=== PATIENT | female | born 1955 | race Caucasian/White ===

== ENCOUNTER → 2019-02-25 | Outpatient (CLI) | payer OTHER ==
--- NOTE | 2019-02-28 12:15 | REPMRS ---
Patient History The patient states she has not had a clinical breast exam in over a year. Patient is postmenopausal. No known family history of cancer. Reductions of both breasts, 1999. No Hormone Replacement Therapy Digital Woman Screen Mammo: February 25, 2019 - Exam #: [id number] Bilateral CC and MLO view(s) were taken. Technologist: Emi Stockton, Technologist Prior study comparison: July 17, 2016, bilateral digital woman screen mammo, performed at [facility]. March 06, 2010, bilateral digital woman screen mammo, performed at [facility]. FINDINGS: There are scattered fibroglandular densities. There has been no change in the appearance of the mammogram from the prior studies. There is a mild amount of scattered fibroglandular density which is fairly symmetric. There is no interval development of dominant mass, architectural distortion, or clustered microcalcification suggestive of malignancy. 3-D tomosynthesis shows no additional findings. Assessment: BI-RADS/ACR category 1 mammogram. Negative Mammogram. Recommendation Routine screening mammogram of both breasts in 1 year (for women over age 40). This patient's Lifetime Breast Cancer RIsk is estimated at 6.4 %. This mammogram was interpreted with the aid of an FDA-approved computer-aided dectection system. Electronically Signed By: Frandy Jo MD 02/28/19 [id number]
== END ==
LOC: M WHC 12:48
PROVIDERS: ATTEND Internal Medicine
DX: Z12.31 Encounter for screening mammogram for malignant neoplasm of breast (principal); Z78.0 Asymptomatic menopausal state

== ENCOUNTER 2019-11-08 08:44 | Day surgery (SDC) | payer OTHER ==
[~2019-11-08] VITALS: Ht 152.4 cm; Wt 78.9 kg
[~2019-11-08 08:44] MED LIST: JANU100T PO; LIDOCAINE 2% INJ 100 MG/5 ML SDV (FOR ANES.) As Ordered ONE; LISI10TA15 PO; METF-723 PO; NS 1,000 ML IV SCH; SIMV20TA22 PO; propofoL 200 MG/20 ML VIAL As Ordered ONE
--- NOTE | 2019-11-08 09:58 | ROOR ---
Patient Name: Sarahi Noland Procedure Date: 11/08/2019 9:46 AM Date of : 1955 Age: 64 Room: [facility] Gender: Female Note Status: Finalized Procedure: Upper GI endoscopy Indications: Surveillance for malignancy due to personal history of Hui's esophagus Providers: Brad FERNANDEZ MD Referring MD: TERESSA PETERS MD Requesting Provider: Medicines: Monitored Anesthesia Care Complications: No immediate complications. Procedure: Pre-Anesthesia Assessment: - The heart rate, respiratory rate, oxygen saturations, blood pressure, adequacy of pulmonary ventilation, and response to care were monitored throughout the procedure. The Endoscope was introduced through the mouth, and advanced to the second part of duodenum. The upper GI endoscopy was accomplished without difficulty. The patient tolerated the procedure well. Findings: The Z-line was irregular and was found 38 cm from the incisors. This was biopsied with a cold forceps for histology. The esophagus was normal. The stomach was normal. The examined duodenum was normal. Impression: - Z-line irregular, 38 cm from the incisors. Biopsied. - Normal esophagus. - Normal stomach. - Normal examined duodenum. Recommendation: - Continue present medications. - Repeat upper endoscopy in 3 - 5 years for surveillance based on pathology results. - Telephone endoscopist for pathology results in 2 weeks. Brad Fernandez MD Brad FERNANDEZ MD 11/08/2019 9:58:26 AM Electronically signed by Brad FERNANDEZ MD Number of Addenda: 0 Note Initiated On: 11/08/2019 9:46 AM Estimated Blood Loss: Estimated blood loss: none.
--- NOTE | 2019-11-08 10:20 | ROOR ---
Patient Name: Sarahi Noland Procedure Date: 11/08/2019 9:46 AM Date of : 1955 Age: 64 Room: [facility] Gender: Female Note Status: Finalized Procedure: Colonoscopy Indications: High risk colon cancer surveillance: Personal history of colonic polyps Providers: Brad ENG MD Referring MD: TERESSA PETERS MD Requesting Provider: Medicines: Monitored Anesthesia Care Complications: No immediate complications. Procedure: Pre-Anesthesia Assessment: - The heart rate, respiratory rate, oxygen saturations, blood pressure, adequacy of pulmonary ventilation, and response to care were monitored throughout the procedure. The Colonoscope was introduced through the anus and advanced to the cecum, identified by appendiceal orifice and ileocecal valve. The colonoscopy was performed without difficulty. The patient tolerated the procedure well. The quality of the bowel preparation was fair. Findings: The perianal and digital rectal examinations were normal. A diffuse area of mildly erythematous mucosa was found in the entire colon. This was biopsied with a cold forceps for histology. The exam was otherwise without abnormality on direct and retroflexion views. Impression: - Preparation of the colon was fair. - Mildly erythematous mucosa in the entire examined colon. Biopsied. - The examination was otherwise normal on direct and retroflexion views. Recommendation: - Repeat colonoscopy in 3 years because the bowel preparation was suboptimal. - (Rec alternate colon preparation for next colonoscopy) Brad Eng MD Brad ENG MD 11/08/2019 10:19:42 AM Electronically signed by Brad ENG MD Number of Addenda: 0 Note Initiated On: 11/08/2019 9:46 AM Estimated Blood Loss: Estimated blood loss: none.
[2019-11-08 10:45] VITALS: BP 119/63
== END 2019-11-08 10:52 | disposition home or self-care (01) ==
LOC: M OPP 08:44
PROVIDERS: ATTEND Internal Medicine Gastroenterology
DX: K64.8 Other hemorrhoids (principal); R63.4 Abnormal weight loss; Z80.0 Family history of malignant neoplasm of digestive organs; K22.8 Other specified diseases of esophagus; K20.0 Eosinophilic esophagitis; E11.9 Type 2 diabetes mellitus without complications; K21.9 Gastro-esophageal reflux disease without esophagitis; Z79.84 Long term (current) use of oral hypoglycemic drugs; Z79.899 Other long term (current) drug therapy; Z87.891 Personal history of nicotine dependence

== ENCOUNTER → 2020-03-07 | Outpatient (CLI) | payer OTHER ==
[~2020-03-07] MED LIST changes: -LIDOCAINE 2% INJ 100 MG/5 ML SDV (FOR ANES.) As Ordered ONE; -NS 1,000 ML IV SCH; -propofoL 200 MG/20 ML VIAL As Ordered ONE
--- NOTE | 2020-03-07 15:09 | REPMRS ---
Patient History The patient states she has not had a clinical breast exam in over a year. No known family history of cancer. Reductions of both breasts, 1999. No Hormone Replacement Therapy Digital Woman Screen Mammo: March 07, 2020 - Exam #: [id number] Bilateral CC and MLO view(s) were taken. Technologist: Anny Stewart Technologist Prior study comparison: February 25, 2019, bilateral digital woman screen mammo performed at [facility]. July 17, 2016, bilateral digital woman screen mammo, performed at [facility]. FINDINGS: There are scattered fibroglandular densities. The Volpara volumetric breast density category is:B. There has been no change in the appearance of the mammogram from the prior studies. There is a mild amount of scattered fibroglandular density which is fairly symmetric. There is no interval development of dominant mass, architectural distortion, or grouped microcalcification suggestive of malignancy. 3-D tomosynthesis shows no additional findings. Assessment: BI-RADS/ACR category 1 mammogram. Negative Mammogram. Recommendation Routine screening mammogram of both breasts in 1 year (for women over age 40). This patient's Lifetime Breast Cancer Risk is estimated at 6.1 %. This mammogram was interpreted with the aid of an FDA-approved computer-aided dectection system. Electronically Signed By: Frandy Jo MD 03/07/20 [id number]
== END ==
LOC: M WHC 14:01
PROVIDERS: ATTEND Internal Medicine
DX: Z12.31 Encounter for screening mammogram for malignant neoplasm of breast (principal)

== ENCOUNTER 2021-01-22 12:21 | Emergency (ER) | payer OTHER ==
[~2021-01-22] VITALS: Ht 154.9 cm; Wt 81.4 kg
[2021-01-22] MEDS ORDERED: CYCL-707 (12:31)
[2021-01-22] MEDS ORDERED: OMEP1CAP73 (12:31)
[2021-01-22 13:16] LABS: BASO # 0.1 10^3/uL (0.0-0.2); BASO % 1.1 % (0.0-1.0); EOS % 0.4 % (0.0-3.0); HEMATOCRIT 42.3 % (36.0-47.0); HEMOGLOBIN 13.9 g/dl (12.0-15.5); LYMPH # 1.5 10^3/uL (1.5-5.0); LYMPH % 18.6 % (24.0-44.0); MEAN CORPUSCULAR HEMOGLOBIN 26.2 pg (27.0-33.0); MEAN CORPUSCULAR HGB CONC 32.9 g/dl (32.0-36.5); MEAN CORPUSCULAR VOLUME 79.8 fl (80.0-96.0); MONO # 0.7 10^3/uL (0.0-0.8); MONO % 8.2 % (2.0-8.0); NEUTROPHILS # 5.8 10^3/uL (1.5-8.5); NEUTROPHILS % 71.3 % (36.0-66.0); PLATELET COUNT, AUTOMATED 348 10^3/uL (150-450); WHITE BLOOD COUNT 8.1 10^3/uL (4.0-10.0)
[2021-01-22] MEDS ORDERED: ONDANSETRON 4MG/2ML VIAL As Ordered ONE (13:19)
--- NOTE | 2021-01-22 13:19 | REP ---
INDICATION: dizziness. COMPARISON: None. TECHNIQUE: Helical scanning is acquired. 5 mm axial images were reformatted. Coronal MPR images were generated. FINDINGS: Bone window settings demonstrate an intact bony calvarium. There is no evidence of skull fracture or incidental bony calvarial lesion. The visualized paranasal sinuses appear clear. No intraorbital abnormality is seen. On soft tissue window setting images; the lateral, third, and fourth ventricles are normal in size and position. Baird-white differentiation pattern is normal above and below the tentorium. There are is no evidence of intracranial hemorrhage. No mass, edema, infarction, or midline shift is seen. No extra-axial fluid collection is appreciated. There is mild vascular calcification in the carotid siphons bilaterally. Some physiologic calcification is noted in the basal ganglia. IMPRESSION: Minimal vascular calcification. No acute intracranial abnormality.. <Electronically signed by Frandy Jo > 01/22/21 [id number]
[2021-01-22] MEDS ORDERED: ONDANSETRON 4MG/2ML VIAL IV ONE (13:20)
[2021-01-22 13:53] LABS: ALBUMIN 3.9 GM/DL (3.2-5.2); ALT/SGPT 37 U/L (12-78); BILIRUBIN,DIRECT 0.1 MG/DL (0.0-0.2); BILIRUBIN,TOTAL 0.3 MG/DL (0.2-1.0); BLOOD UREA NITROGEN 16 MG/DL (7-18); CALCIUM LEVEL 9.5 MG/DL (8.8-10.2); CARBON DIOXIDE LEVEL 30 MEQ/L (21-32); CHLORIDE LEVEL 100 MEQ/L (98-107); CK-MB VALUE MASS < 1.0 NG/ML (<3.6); CPK CREATINE PHOSPHOKINASE 69 U/L (26-192); CREATININE FOR GFR 0.66 MG/DL (0.55-1.30); GLOMERULAR FILTRATION RATE > 60.0 (>45); GLUCOSE, FASTING 169 MG/DL (70-100); MB/CK RELATIVE INDEX 1.45 (< OR =4); POTASSIUM SERUM 3.9 MEQ/L (3.5-5.1); SODIUM LEVEL 137 MEQ/L (136-145); TOTAL PROTEIN 7.2 GM/DL (6.4-8.2); TROPONIN I < 0.02 NG/ML (< 0.10)
[2021-01-22] MEDS ORDERED: MECL1TAB31 PO (15:56)
[2021-01-22] MEDS ORDERED: MECLIZINE 25 MG TABLET PO ONE (16:05)
[2021-01-22 16:07] VITALS: BP 153/85
--- NOTE | 2021-01-22 20:53 | ECGEPIP ---
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
== END 2021-01-22 16:19 | disposition home or self-care (01) ==
LOC: M ED 12:21
DX: H61.23 Impacted cerumen, bilateral (principal); R42 Dizziness and giddiness; I44.7 Left bundle-branch block, unspecified; E11.9 Type 2 diabetes mellitus without complications; I10 Essential (primary) hypertension; K21.9 Gastro-esophageal reflux disease without esophagitis; E78.5 Hyperlipidemia, unspecified; Z79.84 Long term (current) use of oral hypoglycemic drugs; Z79.899 Other long term (current) drug therapy; Z98.890 Other specified postprocedural states
CPT/HCPCS: 69209; 70450; 80048; 80076; 82550; 82553; 84443; 85025; 93005; 93041; 94760; 96374; 99285; J2405

== ENCOUNTER → 2021-04-02 | Outpatient (CLI) | payer OTHER ==
[~2021-04-02] MED LIST changes: +CYCL-707; +MECL1TAB31 PO; +OMEP1CAP73
--- NOTE | 2021-04-03 09:40 | REPMRS ---
Patient History The patient states she has not had a clinical breast exam in over a year. No known family history of cancer. Reductions of both breasts, 1998. No Hormone Replacement Therapy Patient states no breast complaints today. Patient has signed MRS History Sheet. Digital Woman Screen Mammo: April 02, 2021 - Exam #: [id number] Bilateral CC and MLO view(s) were taken. Technologist: Sarahi Persaud, Technologist Prior study comparison: March 07, 2020, bilateral digital woman screen mammo performed at [facility]. February 25, 2019, bilateral digital woman screen mammo performed at [facility]. FINDINGS: There are scattered fibroglandular densities. Screening. Digital screening (2D) mammography was performed bilaterally in the CC and MLO projections. Additionally, breast tomosynthesis (3D mammography) was performed bilaterally in the CC and MLO projections. Todays exam was compared to the prior exam/exams. By history, the patient has no complaints of a palpable breast abnormality or other significant breast complaints. The breasts are unchanged in size and shape. There are no cain-soft tissue densities or spiculated masses. There is no internal architectural distortion.Once again, stable benign appearing calcifications are seen. There are no suspicious cain-calcific clusters. Skin thickening or nipple retraction is not present. IMPRESSION: BI-RADS Category 2- Benign Findings. There is no evidence of malignant alteration of the breasts. Followup examination recommended in one year. The Volpara volumetric breast density category is B, there are scattered areas of fibroglandular densities. This mammogram was [facility] assistance of [facility] [employer],an FDA approved computer aided detection system for mammography. The lifetime Tyrer-Cuzick score is 5.9 % Negative x-ray reports should not delay surgical consultation if a dominant or clinically suspicious mass is present. Not all breast cancers can be identified by mammography. Therefore, we recommend that you continue to perform regular breast self-examination and physical examination and then promptly contact your physician of any concerns or changes. Adenosis and dense breasts may obscure an underlying neoplasm. Assessment: BI-RADS/ACR category 2 mammogram. Benign Findings. Recommendation Routine screening mammogram of both breasts in 1 year. Electronically Signed By: Jaren Matos DO 04/03/21 0963
== END ==
LOC: M WHC 12:22
PROVIDERS: ATTEND Internal Medicine
DX: Z12.31 Encounter for screening mammogram for malignant neoplasm of breast (principal)

== ENCOUNTER → 2022-06-27 | Outpatient (CLI) | payer MEDICARE ==
[~2022-06-27] MED LIST changes: -LISI10TA15 PO; +LISI10TA24 PO
== END ==
LOC: M WHC 15:21
PROVIDERS: ATTEND Internal Medicine
DX: Z12.31 Encounter for screening mammogram for malignant neoplasm of breast (principal)

== ENCOUNTER 2023-01-27 06:35 | Day surgery (SDC) | payer MEDICARE ==
[~2023-01-27] VITALS: Ht 152.4 cm; Wt 82.6 kg
[~2023-01-27 06:35] MED LIST changes: +GLIP5TAB20 PO; +ROSU20TA5 PO; +VITA-183 PO; +VITMTA PO
[2023-01-27] MEDS ORDERED: SIMETHICONE 40MG/0.6ML DROPS 30ML As Ordered ONE (07:11)
[2023-01-27] MEDS ORDERED: propofoL 200 MG/20 ML VIAL As Ordered ONE ×2 (07:30→07:50)
[2023-01-27] MEDS ORDERED: fentaNYL 100 MCG/2 ML INJECTION As Ordered ONE (07:31)
[2023-01-27 08:30] VITALS: BP 140/65
== END 2023-01-27 08:39 | disposition home or self-care (01) ==
LOC: M OPP 06:35
PROVIDERS: ATTEND Internal Medicine Gastroenterology
DX: Z86.010 Personal history of colon polyps (principal); D12.0 Benign neoplasm of cecum; K64.8 Other hemorrhoids; K22.89 Other specified disease of esophagus; K22.70 Barrett's esophagus without dysplasia; Z79.02 Long term (current) use of antithrombotics/antiplatelets; Z79.84 Long term (current) use of oral hypoglycemic drugs; Z79.899 Other long term (current) drug therapy
CPT/HCPCS: 43239; 45385; 88305; J3010

== ENCOUNTER → 2023-05-19 | Outpatient (CLI) | payer MEDICARE ==
[~2023-05-19] MED LIST changes: +MECL-209 PO; -MECL1TAB31 PO; -ROSU20TA5 PO; +ROSU20TA61 PO
[2023-05-19 17:04] LABS: ALBUMIN 3.6 G/DL (3.2-5.2); ALKALINE PHOSPHATASE 78 U/L (46-116); ALT/SGPT 29 U/L (7.0-40); AST/SGOT 17 U/L (<34); BILIRUBIN,TOTAL 0.3 MG/DL (0.3-1.2); BLOOD UREA NITROGEN 23 MG/DL (9-23); CALCIUM LEVEL 8.8 MG/DL (8.3-10.6); CARBON DIOXIDE LEVEL 28 MMOL/L (20-31); CHLORIDE LEVEL 103 MMOL/L (98-107); CHOLESTEROL LEVEL 147 MG/DL (<200); CHOLESTEROL RISK RATIO 2.44 (<5); CREATININE FOR GFR 0.58 MG/DL (0.55-1.30); GLOMERULAR FILTRATION RATE > 60.0 (>45); GLUCOSE, FASTING 151 MG/DL (74-106); HDL CHOLESTEROL 60.1 MG/DL (>40); LDL CHOLESTEROL 55.9 MG/DL (<100); NON-HDL-C 86.9 MG/DL; POTASSIUM SERUM 4.2 MMOL/L (3.5-5.1); SODIUM LEVEL 140 MMOL/L (136-145); TOTAL PROTEIN 6.6 G/DL (5.7-8.2); TRIGLYCERIDES LEVEL 155 MG/DL (<150)
[2023-05-19 17:07] LABS: HEMOGLOBIN A1c 7.4 % (4.0-6.0)
== END ==
LOC: M WUC 10:31
PROVIDERS: ATTEND Internal Medicine
DX: E78.5 Hyperlipidemia, unspecified (principal); E11.9 Type 2 diabetes mellitus without complications

== ENCOUNTER → 2023-07-03 | Outpatient (CLI) | payer MEDICARE | LOC: M WHC 14:47 | PROVIDERS: ATTEND Internal Medicine | DX: Z12.31 Encounter for screening mammogram for malignant neoplasm of breast (principal); R92.1 Mammographic calcification found on diagnostic imaging of breast ==

== ENCOUNTER → 2023-08-19 | Outpatient (CLI) | payer MEDICARE ==
[2023-08-19 13:36] LABS: BASO # 0.1 10^3/uL (0.0-0.2); EOS # 0.2 10^3/uL (0.0-0.5); EOS % 2.7 % (0.0-3.0); HEMATOCRIT 37.8 % (36.0-47.0); HEMOGLOBIN 11.1 g/dl (12.0-15.5); LYMPH # 1.6 10^3/uL (1.5-5.0); LYMPH % 20.1 % (24.0-44.0); MEAN CORPUSCULAR HGB CONC 29.4 g/dl (32.0-36.5); MONO # 0.6 10^3/uL (0.0-0.8); MONO % 7.6 % (2.0-8.0); NEUTROPHILS # 5.5 10^3/uL (1.5-8.5); NEUTROPHILS % 68.4 % (36.0-66.0); PLATELET COUNT, AUTOMATED 357 10^3/uL (150-450); RED BLOOD COUNT 5.04 10^6/uL (4.00-5.40)
[2023-08-19 13:50] LABS: HEMOGLOBIN A1c 6.6 % (4.0-6.0)
[2023-08-19 14:02] LABS: ALBUMIN 3.8 G/DL (3.2-5.2); ALKALINE PHOSPHATASE 73 U/L (46-116); ALT/SGPT 23 U/L (7.0-40); AST/SGOT 21 U/L (<34); BILIRUBIN,TOTAL 0.3 MG/DL (0.3-1.2); BLOOD UREA NITROGEN 25 MG/DL (9-23); CALCIUM LEVEL 9.2 MG/DL (8.3-10.6); CARBON DIOXIDE LEVEL 29 MMOL/L (20-31); CHLORIDE LEVEL 101 MMOL/L (98-107); CHOLESTEROL LEVEL 127 MG/DL (<200); CHOLESTEROL RISK RATIO 2.27 (<5); CREATININE FOR GFR 0.74 MG/DL (0.55-1.30); GLOMERULAR FILTRATION RATE > 60.0 (>45); GLUCOSE, FASTING 135 MG/DL (74-106); HDL CHOLESTEROL 55.9 MG/DL (>40); LDL CHOLESTEROL 40.5 MG/DL (<100); NON-HDL-C 71.1 MG/DL; SODIUM LEVEL 139 MMOL/L (136-145); TOTAL PROTEIN 6.8 G/DL (5.7-8.2); TRIGLYCERIDES LEVEL 153 MG/DL (<150)
== END ==
LOC: M WUC 09:34
PROVIDERS: ATTEND Internal Medicine
DX: E78.5 Hyperlipidemia, unspecified (principal); E11.9 Type 2 diabetes mellitus without complications

== ENCOUNTER → 2023-11-18 | Outpatient (CLI) | payer MEDICARE ==
[2023-11-18 17:18] LABS: BASO # 0.1 10^3/uL (0.0-0.2); BASO % 1.3 % (0.0-1.0); EOS # 0.2 10^3/uL (0.0-0.5); EOS % 2.3 % (0.0-3.0); HEMATOCRIT 38.7 % (36.0-47.0); HEMOGLOBIN 11.6 g/dl (12.0-15.5); LYMPH # 1.6 10^3/uL (1.5-5.0); LYMPH % 20.8 % (24.0-44.0); MEAN CORPUSCULAR HEMOGLOBIN 22.5 pg (27.0-33.0); MONO # 0.6 10^3/uL (0.0-0.8); NEUTROPHILS # 5.4 10^3/uL (1.5-8.5); NEUTROPHILS % 68.2 % (36.0-66.0); PLATELET COUNT, AUTOMATED 365 10^3/uL (150-450); RED BLOOD COUNT 5.16 10^6/uL (4.00-5.40); WHITE BLOOD COUNT 7.8 10^3/uL (4.0-10.0)
[2023-11-18 17:23] LABS: HEMOGLOBIN A1c 6.6 % (4.0-6.0)
[2023-11-18 17:39] LABS: IRON (FE) 26 UG/DL (50-170)
[2023-11-18 17:40] LABS: ALBUMIN 3.7 G/DL (3.2-5.2); ALKALINE PHOSPHATASE 81 U/L (46-116); ALT/SGPT 25 U/L (7.0-40); AST/SGOT 20 U/L (<34); BILIRUBIN,TOTAL 0.3 MG/DL (0.3-1.2); BLOOD UREA NITROGEN 24 MG/DL (9-23); CALCIUM LEVEL 8.4 MG/DL (8.3-10.6); CARBON DIOXIDE LEVEL 30 MMOL/L (20-31); CHLORIDE LEVEL 103 MMOL/L (98-107); CHOLESTEROL LEVEL 129 MG/DL (<200); CHOLESTEROL RISK RATIO 2.57 (<5); CREATININE FOR GFR 0.74 MG/DL (0.55-1.30); GLOMERULAR FILTRATION RATE > 60.0 (>45); GLUCOSE, FASTING 126 MG/DL (74-106); HDL CHOLESTEROL 50.1 MG/DL (>40); LDL CHOLESTEROL 46.3 MG/DL (<100); NON-HDL-C 78.9 MG/DL; PERCENT SATURATION 6.3 % (13.2-45.0); POTASSIUM SERUM 4.5 MMOL/L (3.5-5.1); SODIUM LEVEL 140 MMOL/L (136-145); TOTAL IRON BINDING CAPACITY 410 UG/DL (250-425); TOTAL PROTEIN 6.7 G/DL (5.7-8.2); TRIGLYCERIDES LEVEL 163 MG/DL (<150)
== END ==
LOC: M WUC 10:55
PROVIDERS: ATTEND Internal Medicine
DX: E78.5 Hyperlipidemia, unspecified (principal); E11.9 Type 2 diabetes mellitus without complications; D50.9 Iron deficiency anemia, unspecified

== ENCOUNTER → 2024-03-01 | Outpatient (CLI) | payer MEDICARE ==
[2024-03-01 12:38] LABS: BASO # 0.1 10^3/uL (0.0-0.2); BASO % 1.1 % (0.0-1.0); EOS # 0.2 10^3/uL (0.0-0.5); EOS % 2.5 % (0.0-3.0); HEMATOCRIT 38.3 % (36.0-47.0); HEMOGLOBIN 11.8 g/dl (12.0-15.5); LYMPH # 1.7 10^3/uL (1.5-5.0); LYMPH % 21.2 % (24.0-44.0); MEAN CORPUSCULAR HEMOGLOBIN 23.6 pg (27.0-33.0); MEAN CORPUSCULAR HGB CONC 30.8 g/dl (32.0-36.5); MEAN CORPUSCULAR VOLUME 76.6 fl (80.0-96.0); MONO # 0.7 10^3/uL (0.0-0.8); MONO % 8.9 % (2.0-8.0); NEUTROPHILS # 5.2 10^3/uL (1.5-8.5); NEUTROPHILS % 65.9 % (36.0-66.0); PLATELET COUNT, AUTOMATED 331 10^3/uL (150-450); WHITE BLOOD COUNT 7.9 10^3/uL (4.0-10.0)
[2024-03-01 12:43] LABS: IRON (FE) 31 UG/DL (50-170)
[2024-03-01 12:44] LABS: ALBUMIN 3.6 G/DL (3.2-5.2); ALKALINE PHOSPHATASE 80 U/L (46-116); ALT/SGPT 26 U/L (7.0-40); AST/SGOT 18 U/L (<34); BILIRUBIN,TOTAL 0.3 MG/DL (0.3-1.2); BLOOD UREA NITROGEN 20 MG/DL (9-23); CALCIUM LEVEL 9.3 MG/DL (8.3-10.6); CARBON DIOXIDE LEVEL 30 MMOL/L (20-31); CHLORIDE LEVEL 103 MMOL/L (98-107); CHOLESTEROL LEVEL 139 MG/DL (<200); CHOLESTEROL RISK RATIO 2.27 (<5); CREATININE FOR GFR 0.71 MG/DL (0.55-1.30); GLOMERULAR FILTRATION RATE > 60.0 (>45); GLUCOSE, FASTING 110 MG/DL (74-106); HDL CHOLESTEROL 61.2 MG/DL (>40); LDL CHOLESTEROL 49.4 MG/DL (<100); NON-HDL-C 77.8 MG/DL; PERCENT SATURATION 7.6 % (13.2-45.0); POTASSIUM SERUM 4.1 MMOL/L (3.5-5.1); SODIUM LEVEL 139 MMOL/L (136-145); TOTAL IRON BINDING CAPACITY 409 UG/DL (250-425); TOTAL PROTEIN 6.5 G/DL (5.7-8.2); TRIGLYCERIDES LEVEL 142 MG/DL (<150)
[2024-03-01 12:58] LABS: HEMOGLOBIN A1c 6.3 % (4.0-6.0)
== END ==
LOC: M WUC 09:21
PROVIDERS: ATTEND Internal Medicine
DX: D50.9 Iron deficiency anemia, unspecified (principal); E78.5 Hyperlipidemia, unspecified

== ENCOUNTER → 2024-06-01 | Outpatient (CLI) | payer MEDICARE ==
[2024-06-01 14:06] LABS: BASO # 0.1 10^3/uL (0.0-0.2); BASO % 1.2 % (0.0-1.0); EOS # 0.2 10^3/uL (0.0-0.5); EOS % 2.2 % (0.0-3.0); HEMATOCRIT 36.4 % (36.0-47.0); HEMOGLOBIN 11.1 g/dl (12.0-15.5); LYMPH # 1.5 10^3/uL (1.5-5.0); LYMPH % 21.1 % (24.0-44.0); MEAN CORPUSCULAR HEMOGLOBIN 24.2 pg (27.0-33.0); MEAN CORPUSCULAR HGB CONC 30.5 g/dl (32.0-36.5); MEAN CORPUSCULAR VOLUME 79.5 fl (80.0-96.0); MONO # 0.6 10^3/uL (0.0-0.8); MONO % 8.4 % (2.0-8.0); NEUTROPHILS # 4.6 10^3/uL (1.5-8.5); NEUTROPHILS % 66.8 % (36.0-66.0); PLATELET COUNT, AUTOMATED 365 10^3/uL (150-450); RED BLOOD COUNT 4.58 10^6/uL (4.00-5.40)
[2024-06-01 14:30] LABS: ALBUMIN 3.5 G/DL (3.2-5.2); ALKALINE PHOSPHATASE 77 U/L (46-116); ALT/SGPT 19 U/L (7.0-40); AST/SGOT 17 U/L (<34); BILIRUBIN,TOTAL 0.3 MG/DL (0.3-1.2); BLOOD UREA NITROGEN 22 MG/DL (9-23); CARBON DIOXIDE LEVEL 29 MMOL/L (20-31); CHLORIDE LEVEL 104 MMOL/L (98-107); CHOLESTEROL LEVEL 134 MG/DL (<200); CREATININE FOR GFR 0.73 MG/DL (0.55-1.30); GLOMERULAR FILTRATION RATE > 60.0 (>45); GLUCOSE, FASTING 121 MG/DL (74-106); HDL CHOLESTEROL 51.5 MG/DL (>40); IRON (FE) 25 UG/DL (50-170); LDL CHOLESTEROL 49.3 MG/DL (<100); NON-HDL-C 82.5 MG/DL; PERCENT SATURATION 6.3 % (13.2-45.0); SODIUM LEVEL 137 MMOL/L (136-145); TOTAL IRON BINDING CAPACITY 395 UG/DL (250-425); TOTAL PROTEIN 6.6 G/DL (5.7-8.2); TRIGLYCERIDES LEVEL 166 MG/DL (<150)
[2024-06-02 06:51] LABS: WHITE BLOOD COUNT 6.9 10^3/uL (4.0-10.0)
== END ==
LOC: M WUC 09:31
PROVIDERS: ATTEND Internal Medicine
DX: E11.9 Type 2 diabetes mellitus without complications (principal); E78.5 Hyperlipidemia, unspecified; D50.9 Iron deficiency anemia, unspecified

== ENCOUNTER → 2024-06-02 | Outpatient (CLI) | payer MEDICARE | LOC: M WUC 11:16 | PROVIDERS: ATTEND Internal Medicine | DX: D50.9 Iron deficiency anemia, unspecified (principal) ==

== ENCOUNTER → 2024-09-14 | Outpatient (CLI) | payer MEDICARE ==
[~2024-09-14] MED LIST changes: +IRON65TA2 PO; -ROSU20TA61 PO; +ROSU20TA86 PO
[2024-09-14 14:04] LABS: ALBUMIN 3.6 G/DL (3.2-5.2); ALKALINE PHOSPHATASE 79 U/L (35-104); ALT/SGPT 20 U/L (7.0-40); AST/SGOT 20 U/L (<34); BILIRUBIN,TOTAL 0.3 MG/DL (0.3-1.2); BLOOD UREA NITROGEN 21 MG/DL (9-23); CARBON DIOXIDE LEVEL 32 MMOL/L (20-31); CHLORIDE LEVEL 102 MMOL/L (98-107); CHOLESTEROL LEVEL 148 MG/DL (<200); CHOLESTEROL RISK RATIO 2.51 (<5); CREATININE FOR GFR 0.67 MG/DL (0.55-1.30); GLOMERULAR FILTRATION RATE > 60.0 (>45); GLUCOSE, FASTING 116 MG/DL (74-106); HDL CHOLESTEROL 58.9 MG/DL (>40); LDL CHOLESTEROL 55.9 MG/DL (<100); NON-HDL-C 89.1 MG/DL; POTASSIUM SERUM 4.1 MMOL/L (3.5-5.1); SODIUM LEVEL 140 MMOL/L (136-145); TRIGLYCERIDES LEVEL 166 MG/DL (<150)
[2024-09-14 14:08] LABS: BASO # 0.1 10^3/uL (0.0-0.2); BASO % 1.2 % (0.0-1.0); EOS # 0.2 10^3/uL (0.0-0.5); EOS % 3.3 % (0.0-3.0); HEMATOCRIT 41.1 % (36.0-47.0); HEMOGLOBIN 12.7 g/dl (12.0-15.5); LYMPH # 1.6 10^3/uL (1.5-5.0); LYMPH % 23.1 % (24.0-44.0); MEAN CORPUSCULAR HEMOGLOBIN 24.6 pg (27.0-33.0); MEAN CORPUSCULAR HGB CONC 30.9 g/dl (32.0-36.5); MEAN CORPUSCULAR VOLUME 79.7 fl (80.0-96.0); MONO # 0.5 10^3/uL (0.0-0.8); MONO % 7.4 % (2.0-8.0); NEUTROPHILS # 4.5 10^3/uL (1.5-8.5); NEUTROPHILS % 64.6 % (36.0-66.0); PLATELET COUNT, AUTOMATED 323 10^3/uL (150-450); RED BLOOD COUNT 5.16 10^6/uL (4.00-5.40); WHITE BLOOD COUNT 6.9 10^3/uL (4.0-10.0)
[2024-09-14 14:23] LABS: HEMOGLOBIN A1c 6.6 % (4.0-6.0)
== END ==
LOC: M WUC 09:28
PROVIDERS: ATTEND Internal Medicine
DX: D50.9 Iron deficiency anemia, unspecified (principal); E78.5 Hyperlipidemia, unspecified; E11.9 Type 2 diabetes mellitus without complications

== ENCOUNTER → 2024-12-13 | Outpatient (REF) | payer MEDICARE ==
[~2024-12-13] MED LIST changes: +GLIP-318 PO; -GLIP5TAB20 PO
[2024-12-13 13:13] LABS: HEMOGLOBIN A1c 6.1 % (4.0-6.0)
[2024-12-13 13:23] LABS: ALBUMIN 4.1 G/DL (3.2-5.2); ALKALINE PHOSPHATASE 88 U/L (35-104); ALT/SGPT 22 U/L (7.0-40); AST/SGOT 21 U/L (<34); BILIRUBIN,TOTAL 0.3 MG/DL (0.3-1.2); BLOOD UREA NITROGEN 23 MG/DL (9-23); CALCIUM LEVEL 9.2 MG/DL (8.3-10.6); CARBON DIOXIDE LEVEL 30 MMOL/L (20-31); CHLORIDE LEVEL 100 MMOL/L (98-107); CHOLESTEROL LEVEL 148 MG/DL (<200); CHOLESTEROL RISK RATIO 2.51 (<5); CREATININE FOR GFR 0.68 MG/DL (0.55-1.30); GLOMERULAR FILTRATION RATE > 60.0 (>45); GLUCOSE, FASTING 157 MG/DL (74-106); HDL CHOLESTEROL 58.8 MG/DL (>40); LDL CHOLESTEROL 51.2 MG/DL (<100); NON-HDL-C 89.2 MG/DL; POTASSIUM SERUM 4.3 MMOL/L (3.5-5.1); SODIUM LEVEL 140 MMOL/L (136-145); TOTAL PROTEIN 6.9 G/DL (5.7-8.2); TRIGLYCERIDES LEVEL 190 MG/DL (<150)
== END ==
LOC: M LABWUC 12:12 → M LAB REF 12:12
PROVIDERS: ATTEND Internal Medicine
DX: E78.5 Hyperlipidemia, unspecified (principal); E11.9 Type 2 diabetes mellitus without complications

== ENCOUNTER → 2025-03-15 | Outpatient (CLI) | payer MEDICARE ==
[~2025-03-15] MED LIST changes: +D31000CA6 PO; +METF-1113 PO; -METF-723 PO; -VITA-183 PO
[2025-03-15 12:29] LABS: BASO # 0.1 10^3/uL (0.0-0.2); BASO % 1.1 % (0.0-1.0); EOS # 0.2 10^3/uL (0.0-0.5); EOS % 2.2 % (0.0-3.0); LYMPH # 1.4 10^3/uL (1.5-5.0); LYMPH % 19.1 % (24.0-44.0); MONO # 0.6 10^3/uL (0.0-0.8); MONO % 7.8 % (2.0-8.0); NEUTROPHILS # 5.1 10^3/uL (1.5-8.5); NEUTROPHILS % 69.5 % (36.0-66.0); PLATELET COUNT, AUTOMATED 278 10^3/uL (150-450)
[2025-03-15 12:46] LABS: ESTIMATED AVERAGE GLUCOSE 180.0 MG/DL (60-110)
[2025-03-15 13:05] LABS: ALT/SGPT 19.0 U/L (7.0-40); AST/SGOT 21.0 U/L (<34); CALCIUM LEVEL 9.3 MG/DL (8.3-10.6); CARBON DIOXIDE LEVEL 28.0 MMOL/L (20-31); CHLORIDE LEVEL 99.0 MMOL/L (98-107); CHOLESTEROL LEVEL 136.0 MG/DL (<200); CHOLESTEROL RISK RATIO 2.91 (<5); CREATININE FOR GFR 0.94 MG/DL (0.55-1.30); GLOMERULAR FILTRATION RATE 66.1 (>45); LDL CHOLESTEROL 42.9 MG/DL (<100); NON-HDL-C 89.3 MG/DL; POTASSIUM SERUM 3.7 MMOL/L (3.5-5.1); SODIUM LEVEL 140.0 MMOL/L (136-145); TRIGLYCERIDES LEVEL 232.0 MG/DL (<150)
== END ==
LOC: M WUC 09:32
PROVIDERS: ATTEND Internal Medicine
DX: E11.9 Type 2 diabetes mellitus without complications (principal); E78.5 Hyperlipidemia, unspecified

== ENCOUNTER → 2025-05-20 | Outpatient (REF) | payer MEDICARE ==
[~2025-05-20] MED LIST changes: -METF-1113 PO; +METF-1201 PO
== END ==
LOC: M LAB REF 18:36
PROVIDERS: ATTEND Physician Assistant
DX: R30.0 Dysuria (principal)

== ENCOUNTER 2025-06-02 09:56 | Inpatient (IN) | payer MEDICARE ==
[2025-06-02] VITALS (23 sets, daily range): BP systolic 74–137; BP diastolic 41–67; TEMP 91.9–96.6; O2SAT 94–100
[~2025-06-02] VITALS: Ht 152.4 cm; Wt 82.7 kg
[~2025-06-02 09:56] MED LIST changes: -CYCL-707; +CYCL-707 PO; +ROSUVASTATIN 10 MG TAB PO SCH
[2025-06-02 11:27] LABS: BASO # 0.3 10^3/uL (0.0-0.2); BASO % 1.4 % (0.0-1.0); EOS # 0.1 10^3/uL (0.0-0.5); EOS % 0.4 % (0.0-3.0); LYMPH # 3.2 10^3/uL (1.5-5.0); LYMPH % 18.1 % (24.0-44.0); MONO # 0.4 10^3/uL (0.0-0.8); MONO % 2.4 % (2.0-8.0); NEUTROPHILS # 13.3 10^3/uL (1.5-8.5); NEUTROPHILS % 74.2 % (36.0-66.0); PLATELET COUNT, AUTOMATED 575 10^3/uL (150-450)
[2025-06-02] MEDS: ONDANSETRON 4MG 2ML VIAL IV ONE (11:33)
[2025-06-02] MEDS: MORPHINE 4 MG/ML 1 ML VIAL IV ONE (11:33)
[2025-06-02] MEDS: ACETAMINOPHEN *IV* 1,000 MG in IV 1 EA IV ONE (11:34)
[2025-06-02 11:41] LABS: KETONE, URINE AUTO RFX 1+ mg/dL (NEGATIVE); LEUKOCYTE ESTERASE UR AUTO RFX NEGATIVE (NEGATIVE); MUCUS, URINE RFX SMALL (NEGATIVE); NITRITE, URINE AUTO RFX NEGATIVE (NEGATIVE); RBC, URINE AUTO RFX 2 /HPF (0-3); SQUAM EPITHELIAL CELL UR AURFX 2 /HPF (0-6); WBC, URINE AUTO RFX 3 /HPF (0-3)
[2025-06-02 12:06] LABS: ALT/SGPT 23 U/L (7.0-40); AST/SGOT 33 U/L (<34)
[2025-06-02 12:54] LABS: CALCIUM LEVEL 10.1 MG/DL (8.3-10.6); CARBON DIOXIDE LEVEL < 10.0 MMOL/L (20-31); CHLORIDE LEVEL 95 MMOL/L (98-107); CREATININE FOR GFR 6.21 MG/DL (0.55-1.30); GLOMERULAR FILTRATION RATE 6.9 (>45); POTASSIUM SERUM 5.3 MMOL/L (3.5-5.1); SODIUM LEVEL 139 MMOL/L (136-145)
[2025-06-02] MEDS: NS (Normal Saline) 0.9% 1,000 ML IV ONE ×4 (13:13→18:30)
[2025-06-02] MEDS: SODIUM BICARBONATE 8.4% INJ 50ML SYRINGE IV STA ×5 (13:24→19:31)
[2025-06-02] MEDS ORDERED: METF850T4 PO (13:25)
[2025-06-02] MEDS ORDERED: OMEP40CA5 PO (13:25)
[2025-06-02] MEDS ORDERED: HOME MED LIST COMPLETE! XX SCH (13:25)
[2025-06-02] MEDS ORDERED: MULTTAB61 PO (13:25)
[2025-06-02] MEDS ORDERED: ONDANSETRON 4MG 2ML VIAL IV PRN (13:35)
[2025-06-02] MEDS ORDERED: GLUCOSE 4 GM CHEW PO PRN (13:40)
[2025-06-02] MEDS ORDERED: GLUCAGON INJ 1 MG VIAL SC PRN (13:40)
[2025-06-02] MEDS ORDERED: DEXTROSE 50% 50 ML SYRINGE IV PRN (13:40)
[2025-06-02] MEDS: SODIUM BICARBONATE 150 MEQ in STERILE WATER LITER BAG 1,000 ML IV SCH (13:42)
[2025-06-02 13:43] LABS: VENOUS BASE EXCESS -34.1 (-2.0-2.0); VENOUS HCO3 2.3 MMOL/L (23.0-27.0); VENOUS O2 SATURATION 96.8 % (60.0-80.0); VENOUS PARTIAL PRESSURE CO2 20.5 mmHg (38.0-50.0); VENOUS PARTIAL PRESSURE O2 148.2 mmHg (30.0-50.0); VENOUS PH 6.670 UNITS (7.330-7.430); VENOUS STANDARD HCO3 2.9 MMOL/L; VENOUS TOTAL CO2 2.9 MMOL/L (24.0-28.0)
[2025-06-02] MEDS ORDERED: NS (Normal Saline) 0.9% 1,000 ML IV ONE ×3 (15:15→23:00)
[2025-06-02] MEDS ORDERED: MIDODRINE 5 MG TAB PO SCH (16:00)
[2025-06-02 16:21] LABS: C REACTIVE PROTEIN QUANTITATIV 1.05 MG/DL (<1.0)
[2025-06-02 16:36] LABS: CALCIUM LEVEL 8.7 MG/DL (8.3-10.6); CARBON DIOXIDE LEVEL < 10.0 MMOL/L (20-31); CHLORIDE LEVEL 98 MMOL/L (98-107); CREATININE FOR GFR 6.20 MG/DL (0.55-1.30); GLOMERULAR FILTRATION RATE 6.9 (>45); POTASSIUM SERUM 5.0 MMOL/L (3.5-5.1); SODIUM LEVEL 143 MMOL/L (136-145)
[2025-06-02] MEDS ORDERED: ACETAMINOPHEN 325 MG TAB PO PRN (17:00)
[2025-06-02] MEDS ORDERED: PIPERACILLIN/TAZOBACTAM SOD 2.25 GM in DEXTROSE 5% (D5W) ADV/MINI-BAG 50 ML IV SCH (17:10)
[2025-06-02 17:13] LABS: FREE T4 0.72 NG/DL (0.89-1.76)
[2025-06-02] MEDS: PIPERACILLIN/TAZOBACTAM SOD 4.5 GM in DEXTROSE 5% (D5W) ADV/MINI-BAG 50 ML IV SCH (17:26)
[2025-06-02] MEDS ORDERED: NOREPINEPHRINE 4 MG IN D5W 250 ML IVBAG (16 MCG/ML) As Ordered ONE (17:31)
[2025-06-02] MEDS: NOREPINEPHRINE 4MG IN D5 250ML 4 MG in IV 1 EA IV SCH (17:36)
[2025-06-02] MEDS: HYDROCORTISONE 100 MG/2 ML VIAL IV ONE (17:42)
[2025-06-02] MEDS ORDERED: VASOPRESSIN IN 0.9 % NACL 20UNIT/100ML INFUS.BTL As Ordered ONE (17:48)
[2025-06-02] MEDS ORDERED: EPINEPHrine INJ 1 MG/ML 1ML AMP As Ordered ONE (17:54)
[2025-06-02] MEDS: EPINEPHrine 1 MG/10 ML SYRINGE 1.5IN IV STA (17:55)
[2025-06-02] MEDS: VASOPRESSIN IN 0.9 % NACL 20 UNIT in IV 1 EA IV SCH (18:00)
[2025-06-02] MEDS: EPINEPHrine HCL INJ 16 MG in D5W 984 ML IV SCH (18:30)
[2025-06-02] MEDS: VANCOMYCIN 125MG CAPSULE PO SCH (18:44)
[2025-06-02 18:48] LABS: ABG BASE EXCESS -24.3 (-2.0-2.0); ABG HCO3 5.6 MMOL/L (22.0-26.0); ABG O2 SATURATION 97.2 % (95.0-99.0); ABG PARTIAL PRESSURE CO2 24.3 mmHg (35.0-45.0); ABG PARTIAL PRESSURE O2 126.6 mmHg (75.0-100.0); ABG STANDARD HCO3 6.7 MMOL/L. (22.0-26.0); ABG TOTAL CO2 6.4 MMOL/L (23.0-31.0)
[2025-06-02 18:54] LABS: ABG pH (ARTERIAL) 6.983 UNITS (7.350-7.450)
[2025-06-02 19:00] LABS: ABG BASE EXCESS -25.3 (-2.0-2.0); ABG HCO3 6.0 MMOL/L (22.0-26.0); ABG O2 SATURATION 95.5 % (95.0-99.0); ABG PARTIAL PRESSURE CO2 30.7 mmHg (35.0-45.0); ABG PARTIAL PRESSURE O2 107.3 mmHg (75.0-100.0); ABG STANDARD HCO3 6.1 MMOL/L. (22.0-26.0); ABG TOTAL CO2 7.0 MMOL/L (23.0-31.0); CENTRAL VEN BASE EXCESS -25.3
[2025-06-02 19:04] LABS: ABG pH (ARTERIAL) 6.911 UNITS (7.350-7.450)
[2025-06-02] MEDS: FERROUS SULFATE 325 MG TAB PO SCH (19:07)
[2025-06-02] MEDS: PANTOPRAZOLE 40MG TAB PO SCH (19:07)
[2025-06-02 19:33] LABS: ALT/SGPT 37 U/L (7.0-40); AST/SGOT 59 U/L (<34); CALCIUM LEVEL 5.8 MG/DL (8.3-10.6); CARBON DIOXIDE LEVEL < 10.0 MMOL/L (20-31); CHLORIDE LEVEL 106 MMOL/L (98-107); CREATININE FOR GFR 4.75 MG/DL (0.55-1.30); GLOMERULAR FILTRATION RATE 9.5 (>45); MAGNESIUM LEVEL 1.5 MG/DL (1.8-2.4); PHOSPHORUS LEVEL 10.8 MG/DL (2.4-5.1); POTASSIUM SERUM 3.8 MMOL/L (3.5-5.1); SODIUM LEVEL 152 MMOL/L (136-145)
[2025-06-02] MEDS: INSULIN LISPRO (NovoLOG) PER UNIT SC SCH ×2 (19:42→20:59)
[2025-06-02] MEDS: CALCIUM CHLORIDE 10% 1 GM/10 ML SYR IV STA (19:43)
[2025-06-02] MEDS: metroNIDAZOLE 500 MG in IV 1 EA IV SCH (20:57)
[2025-06-02 22:12] LABS: ABG BASE EXCESS -23.8 (-2.0-2.0); ABG HCO3 4.9 MMOL/L (22.0-26.0); ABG O2 SATURATION 97.0 % (95.0-99.0); ABG PARTIAL PRESSURE O2 113.6 mmHg (75.0-100.0); ABG STANDARD HCO3 7.4 MMOL/L. (22.0-26.0); ABG TOTAL CO2 5.5 MMOL/L (23.0-31.0)
[2025-06-02 22:14] LABS: ABG PARTIAL PRESSURE CO2 18.1 mmHg (35.0-45.0); ABG pH (ARTERIAL) 7.050 UNITS (7.350-7.450)
[2025-06-02 22:24] LABS: BASO # 0.1 10^3/uL (0.0-0.2); BASO % 0.5 % (0.0-1.0); EOS # 0.0 10^3/uL (0.0-0.5); EOS % 0.1 % (0.0-3.0); LYMPH # 1.8 10^3/uL (1.5-5.0); LYMPH % 6.8 % (24.0-44.0); MONO # 2.1 10^3/uL (0.0-0.8); MONO % 7.6 % (2.0-8.0); NEUTROPHILS # 21.8 10^3/uL (1.5-8.5); NEUTROPHILS % 80.2 % (36.0-66.0)
[2025-06-02 22:25] LABS: PLATELET COUNT, AUTOMATED 413 10^3/uL (150-450)
[2025-06-02 22:30] LABS: INR 1.48
[2025-06-02 22:43] LABS: ALT/SGPT 126 U/L (7.0-40); AST/SGOT 250 U/L (<34); CALCIUM LEVEL 7.0 MG/DL (8.3-10.6); CARBON DIOXIDE LEVEL < 10.0 MMOL/L (20-31); CHLORIDE LEVEL 98 MMOL/L (98-107); CREATININE FOR GFR 4.89 MG/DL (0.55-1.30); GLOMERULAR FILTRATION RATE 9.1 (>45); MAGNESIUM LEVEL 1.4 MG/DL (1.8-2.4); POTASSIUM SERUM 4.4 MMOL/L (3.5-5.1); SODIUM LEVEL 144 MMOL/L (136-145)
[2025-06-02] MEDS: MAG SULF 1GM/100ML (MAG RUN) 1 GM in IV 1 EA IV SCH (23:41)
[2025-06-03] VITALS (96 sets, daily range): BP systolic 78–147; BP diastolic 43–71; TEMP 97.2–99; O2SAT 91–100
[2025-06-03 05:32] LABS: ABG BASE EXCESS -13.0 (-2.0-2.0); ABG HCO3 11.1 MMOL/L (22.0-26.0); ABG O2 SATURATION 96.8 % (95.0-99.0); ABG PARTIAL PRESSURE CO2 21.7 mmHg (35.0-45.0); ABG PARTIAL PRESSURE O2 95.5 mmHg (75.0-100.0); ABG STANDARD HCO3 14.2 MMOL/L. (22.0-26.0); ABG TOTAL CO2 11.8 MMOL/L (23.0-31.0); ABG pH (ARTERIAL) 7.327 UNITS (7.350-7.450)
[2025-06-03 05:51] LABS: BASO # 0.1 10^3/uL (0.0-0.2); BASO % 0.3 % (0.0-1.0); EOS # 0.0 10^3/uL (0.0-0.5); EOS % 0.0 % (0.0-3.0); LYMPH # 1.4 10^3/uL (1.5-5.0); LYMPH % 5.9 % (24.0-44.0); MONO # 1.8 10^3/uL (0.0-0.8); MONO % 7.8 % (2.0-8.0); NEUTROPHILS # 19.1 10^3/uL (1.5-8.5); NEUTROPHILS % 82.6 % (36.0-66.0); PLATELET COUNT, AUTOMATED 343 10^3/uL (150-450)
[2025-06-03 06:01] LABS: CK-MB VALUE MASS 9.9 NG/ML (<3.6)
[2025-06-03] MEDS: LEVALBUTEROL 1.25 MG 0.5ML CONCENTRATE NEB INH PRN (06:01)
[2025-06-03 06:02] LABS: CPK CREATINE PHOSPHOKINASE 283.0 U/L (34-145); MB/CK RELATIVE INDEX 3.49 (< OR =4)
[2025-06-03 06:03] LABS: CALCIUM LEVEL 6.1 MG/DL (8.3-10.6); CARBON DIOXIDE LEVEL < 10.0 MMOL/L (20-31); CHLORIDE LEVEL 90 MMOL/L (98-107); CREATININE FOR GFR 4.77 MG/DL (0.55-1.30); GLOMERULAR FILTRATION RATE 9.4 (>45); POTASSIUM SERUM 4.2 MMOL/L (3.5-5.1); SODIUM LEVEL 139 MMOL/L (136-145)
[2025-06-03] MEDS ORDERED: INSULIN REGULAR IN 0.9 % NACL 100 UNIT in IV 1 EA IV SCH ×2 (06:25→09:30)
[2025-06-03] MEDS ORDERED: INSULIN IV RATE CHANGE DOCUMENTATION ML/HR XX SCH ×3 (06:25→09:35)
[2025-06-03] MEDS ORDERED: HumuLIN R (REGULAR) INSULIN (NovoLIN R) **100 U/ML** PER UNIT IV STA (06:59)
[2025-06-03] MEDS ORDERED: SODIUM CHLORIDE 0.9% 1000 ML IV PRN (09:05)
[2025-06-03] MEDS ORDERED: HEPARIN 1,000 UNITS/ML 10 ML VIAL (FOR RADIOLOGY & DIALYSIS ONLY) XX SCH (09:05)
[2025-06-03] MEDS ORDERED: HEPARIN 1,000 UNITS/ML 10 ML VIAL (FOR RADIOLOGY & DIALYSIS ONLY) IV PRN (09:05)
[2025-06-03 09:17] LABS: CENTRAL VEN BASE EXCESS -9.6
[2025-06-03] MEDS: HEPARIN 1,000 UNITS/ML 10 ML VIAL (FOR RADIOLOGY & DIALYSIS ONLY) IV STA (09:42)
[2025-06-03] MEDS: INSULIN REGULAR IN 0.9 % NACL 100 UNIT in IV 1 EA IV SCH (09:59)
[2025-06-03] MEDS: IPRATROPIUM 0.5 MG/ALBUTEROL 2.5 MG INH SOL UD 3 ML NEB PRN (10:20)
[2025-06-03] MEDS: HYDROCORTISONE 100 MG/2 ML VIAL IV SCH (12:06)
[2025-06-03 12:10] LABS: ABG BASE EXCESS -6.7 (-2.0-2.0); ABG HCO3 16.1 MMOL/L (22.0-26.0); ABG O2 SATURATION 96.5 % (95.0-99.0); ABG PARTIAL PRESSURE CO2 24.3 mmHg (35.0-45.0); ABG PARTIAL PRESSURE O2 100.4 mmHg (75.0-100.0); ABG STANDARD HCO3 19.0 MMOL/L. (22.0-26.0); ABG TOTAL CO2 16.8 MMOL/L (23.0-31.0); ABG pH (ARTERIAL) 7.439 UNITS (7.350-7.450)
[2025-06-03 12:50] LABS: CK-MB VALUE MASS 9.4 NG/ML (<3.6)
[2025-06-03 12:53] LABS: CPK CREATINE PHOSPHOKINASE 320 U/L (34-145); MB/CK RELATIVE INDEX 2.93 (< OR =4)
[2025-06-03 12:55] LABS: HEPATITIS B SURFACE ANTIBODY NEGATIVE (POSITIVE)
[2025-06-03 13:27] LABS: HEPATITIS C VIRUS ABY INDEX 0.07 INDEX (<0.8)
[2025-06-03 13:31] LABS: CALCIUM LEVEL 5.6 MG/DL (8.3-10.6); CARBON DIOXIDE LEVEL 15 MMOL/L (20-31); CHLORIDE LEVEL 89 MMOL/L (98-107); CREATININE FOR GFR 4.91 MG/DL (0.55-1.30); GLOMERULAR FILTRATION RATE 9.1 (>45); POTASSIUM SERUM 3.2 MMOL/L (3.5-5.1); SODIUM LEVEL 138 MMOL/L (136-145)
[2025-06-03] MEDS: CALCIUM CHLORIDE 10% 1 GM/10 ML SYR IV STA (14:43)
[2025-06-03] MEDS: KCL 20MEQ IN 100ML SWI (KRUN) 20 MEQ in IV 1 EA IV ONE (14:44)
[2025-06-04] VITALS (96 sets, daily range): BP systolic 85–139; BP diastolic 45–73; TEMP 98.4–99.9; O2SAT 94–99
[2025-06-04] MEDS: CHLORASEPTIC SPRAY MT PRN (01:51)
[2025-06-04] MEDS ORDERED: SODIUM CHLORIDE 0.9% 1000 ML IV PRN (06:00)
[2025-06-04] MEDS ORDERED: HEPARIN 1,000 UNITS/ML 10 ML VIAL (FOR RADIOLOGY & DIALYSIS ONLY) IV PRN (06:00)
[2025-06-04 06:01] LABS: ABG BASE EXCESS 2.9 (-2.0-2.0); ABG HCO3 25.3 MMOL/L (22.0-26.0); ABG O2 SATURATION 95.1 % (95.0-99.0); ABG PARTIAL PRESSURE CO2 31.2 mmHg (35.0-45.0); ABG PARTIAL PRESSURE O2 77.1 mmHg (75.0-100.0); ABG STANDARD HCO3 27.0 MMOL/L. (22.0-26.0); ABG TOTAL CO2 26.3 MMOL/L (23.0-31.0); ABG pH (ARTERIAL) 7.527 UNITS (7.350-7.450)
[2025-06-04 06:03] LABS: BASO # 0.0 10^3/uL (0.0-0.2); BASO % 0.1 % (0.0-1.0); EOS # 0.0 10^3/uL (0.0-0.5); EOS % 0.0 % (0.0-3.0); LYMPH # 0.5 10^3/uL (1.5-5.0); LYMPH % 3.4 % (24.0-44.0); MONO # 0.9 10^3/uL (0.0-0.8); MONO % 5.9 % (2.0-8.0); NEUTROPHILS # 14.1 10^3/uL (1.5-8.5); NEUTROPHILS % 90.1 % (36.0-66.0); PLATELET COUNT, AUTOMATED 247 10^3/uL (150-450)
[2025-06-04 06:30] LABS: CK-MB VALUE MASS 5.1 NG/ML (<3.6)
[2025-06-04 06:33] LABS: CPK CREATINE PHOSPHOKINASE 317.0 U/L (34-145); MB/CK RELATIVE INDEX 1.6 (< OR =4)
[2025-06-04 06:36] LABS: ALT/SGPT 86.0 U/L (7.0-40); AST/SGOT 92.0 U/L (<34); CALCIUM LEVEL 6.6 MG/DL (8.3-10.6); CARBON DIOXIDE LEVEL 25.0 MMOL/L (20-31); CHLORIDE LEVEL 96.0 MMOL/L (98-107); CREATININE FOR GFR 2.77 MG/DL (0.55-1.30); GLOMERULAR FILTRATION RATE 18.1 (>45); POTASSIUM SERUM 3.0 MMOL/L (3.5-5.1); SODIUM LEVEL 138.0 MMOL/L (136-145)
[2025-06-04] MEDS: HEPARIN 1,000 UNITS/ML 10 ML VIAL (FOR RADIOLOGY & DIALYSIS ONLY) XX SCH (08:19)
[2025-06-04] MEDS: MAG SULF 1GM/100ML (MAG RUN) 1 GM in IV 1 EA IV ONE (08:31)
[2025-06-04 16:51] LABS: ALT/SGPT 68.0 U/L (7.0-40); AST/SGOT 66.0 U/L (<34); CALCIUM LEVEL 6.4 MG/DL (8.3-10.6); CARBON DIOXIDE LEVEL 20.0 MMOL/L (20-31); CHLORIDE LEVEL 98.0 MMOL/L (98-107); CREATININE FOR GFR 1.79 MG/DL (0.55-1.30); GLOMERULAR FILTRATION RATE 30.5 (>45); MAGNESIUM LEVEL 1.8 MG/DL (1.8-2.4); POTASSIUM SERUM 3.4 MMOL/L (3.5-5.1); SODIUM LEVEL 137.0 MMOL/L (136-145)
[2025-06-04] MEDS ORDERED: GLUCAGON INJ 1 MG VIAL SC PRN (17:25)
[2025-06-04] MEDS ORDERED: HUMULIN R U SC ONE (17:25)
[2025-06-04] MEDS ORDERED: GLUCOSE 4 GM CHEW PO PRN (17:25)
[2025-06-04] MEDS ORDERED: DEXTROSE 50% 50 ML SYRINGE IV PRN (17:25)
[2025-06-04] MEDS ORDERED: PEN NEEDLE (USE WITH HUMULIN U-500 INSULIN PEN) XX ONE (17:25)
[2025-06-04] MEDS: INSULIN LISPRO (NovoLOG) PER UNIT SC SCH (17:37)
[2025-06-04] MEDS: HumuLIN R (REGULAR) INSULIN (NovoLIN R) **100 U/ML** PER UNIT IV STA (18:01)
[2025-06-04] MEDS: KCL 20MEQ IN 100ML SWI (KRUN) 20 MEQ in IV 1 EA IV ONE (18:26)
[2025-06-05] VITALS (46 sets, daily range): BP systolic 84–134; BP diastolic 44–80; TEMP 98.2–99.7; O2SAT 92–98
[2025-06-05 05:43] LABS: VENOUS BASE EXCESS 1.2 (-2.0-2.0); VENOUS HCO3 25.3 MMOL/L (23.0-27.0); VENOUS O2 SATURATION 88.9 % (60.0-80.0); VENOUS PARTIAL PRESSURE CO2 37.9 mmHg (38.0-50.0); VENOUS PARTIAL PRESSURE O2 55.4 mmHg (30.0-50.0); VENOUS PH 7.443 UNITS (7.330-7.430); VENOUS STANDARD HCO3 25.5 MMOL/L; VENOUS TOTAL CO2 26.5 MMOL/L (24.0-28.0)
[2025-06-05 05:51] LABS: BASO # 0.0 10^3/uL (0.0-0.2); BASO % 0.1 % (0.0-1.0); EOS # 0.0 10^3/uL (0.0-0.5); EOS % 0.0 % (0.0-3.0); LYMPH # 0.3 10^3/uL (1.5-5.0); LYMPH % 4.4 % (24.0-44.0); MONO # 0.4 10^3/uL (0.0-0.8); MONO % 5.8 % (2.0-8.0); NEUTROPHILS # 6.0 10^3/uL (1.5-8.5); NEUTROPHILS % 89.1 % (36.0-66.0); PLATELET COUNT, AUTOMATED 159 10^3/uL (150-450)
[2025-06-05 06:28] LABS: ALT/SGPT 59.0 U/L (7.0-40); AST/SGOT 48.0 U/L (<34); CALCIUM LEVEL 6.4 MG/DL (8.3-10.6); CARBON DIOXIDE LEVEL 26.0 MMOL/L (20-31); CHLORIDE LEVEL 100.0 MMOL/L (98-107); CREATININE FOR GFR 2.5 MG/DL (0.55-1.30); GLOMERULAR FILTRATION RATE 20.4 (>45); MAGNESIUM LEVEL 2.0 MG/DL (1.8-2.4); POTASSIUM SERUM 3.5 MMOL/L (3.5-5.1); SODIUM LEVEL 139.0 MMOL/L (136-145)
[2025-06-05] MEDS ORDERED: SODIUM CHLORIDE 0.9% 1000 ML IV PRN (07:50)
[2025-06-05] MEDS ORDERED: LIDOCAINE 1% SDV 5 ML VIAL SC PRN (07:50)
[2025-06-05] MEDS ORDERED: HEPARIN 1,000 UNITS/ML 10 ML VIAL (FOR RADIOLOGY & DIALYSIS ONLY) IV PRN (07:50)
[2025-06-05] MEDS: LanTUS (INSULIN GLARGINE INJ) 1 UNITS/0.01 ML SC SCH (08:03)
[2025-06-05] MEDS: HEPARIN 1,000 UNITS/ML 10 ML VIAL (FOR RADIOLOGY & DIALYSIS ONLY) XX SCH (09:09)
[2025-06-05] MEDS: INSULIN LISPRO (NovoLOG) PER UNIT SC SCH ×2 (12:00→20:08)
[2025-06-05] MEDS: FUROSEMIDE 100 MG/10 ML VIAL IV ONE (15:07)
[2025-06-06] VITALS (12 sets, daily range): BP systolic 135–153; BP diastolic 69–84; TEMP 97.4–99.9; O2SAT 91–96
[2025-06-06 04:09] LABS: BASO # 0.0 10^3/uL (0.0-0.2); BASO % 0.2 % (0.0-1.0); EOS # 0.1 10^3/uL (0.0-0.5); EOS % 0.9 % (0.0-3.0); LYMPH # 0.5 10^3/uL (1.5-5.0); LYMPH % 8.5 % (24.0-44.0); MONO # 0.4 10^3/uL (0.0-0.8); MONO % 6.6 % (2.0-8.0); NEUTROPHILS # 4.7 10^3/uL (1.5-8.5); NEUTROPHILS % 83.1 % (36.0-66.0); PLATELET COUNT, AUTOMATED 144 10^3/uL (150-450)
[2025-06-06] MEDS: POTASSIUM CHLORIDE 10MEQ SR TABLET PO SCH (08:40)
[2025-06-06] MEDS: FUROSEMIDE 100 MG/10 ML VIAL IV ONE (08:41)
[2025-06-07] VITALS (7 sets, daily range): BP systolic 121–160; BP diastolic 57–84; TEMP 97.7–100.6; O2SAT 93–97
[2025-06-07 05:44] LABS: BASO # 0.0 10^3/uL (0.0-0.2); BASO % 0.7 % (0.0-1.0); EOS # 0.1 10^3/uL (0.0-0.5); EOS % 2.8 % (0.0-3.0); LYMPH # 0.7 10^3/uL (1.5-5.0); LYMPH % 17.0 % (24.0-44.0); MONO # 0.4 10^3/uL (0.0-0.8); MONO % 9.7 % (2.0-8.0); NEUTROPHILS # 3.0 10^3/uL (1.5-8.5); NEUTROPHILS % 68.2 % (36.0-66.0); PLATELET COUNT, AUTOMATED 121 10^3/uL (150-450)
[2025-06-07 06:11] LABS: ALT/SGPT 36.0 U/L (7.0-40); AST/SGOT 33.0 U/L (<34); CALCIUM LEVEL 7.3 MG/DL (8.3-10.6); CARBON DIOXIDE LEVEL 30.0 MMOL/L (20-31); CHLORIDE LEVEL 102.0 MMOL/L (98-107); CREATININE FOR GFR 3.02 MG/DL (0.55-1.30); GLOMERULAR FILTRATION RATE 16.3 (>45); POTASSIUM SERUM 3.0 MMOL/L (3.5-5.1); SODIUM LEVEL 142.0 MMOL/L (136-145)
[2025-06-07] MEDS: POTASSIUM CHLORIDE 10MEQ SR TABLET PO ONE ×3 (08:07→17:59)
[2025-06-07 12:26] LABS: MAGNESIUM LEVEL 1.5 MG/DL (1.8-2.4); POTASSIUM SERUM 3.3 MMOL/L (3.5-5.1)
[2025-06-07] MEDS: MAG SULF 1GM/100ML (MAG RUN) 1 GM in IV 1 EA IV ONE (13:53)
[2025-06-08 04:00] VITALS: BP 132/69; TEMP 97.2; O2SAT 96
[2025-06-08 08:03] LABS: BASO # 0.0 10^3/uL (0.0-0.2); BASO % 0.8 % (0.0-1.0); EOS # 0.3 10^3/uL (0.0-0.5); EOS % 4.9 % (0.0-3.0); LYMPH # 0.9 10^3/uL (1.5-5.0); LYMPH % 17.9 % (24.0-44.0); MONO # 0.6 10^3/uL (0.0-0.8); MONO % 11.5 % (2.0-8.0); NEUTROPHILS # 3.2 10^3/uL (1.5-8.5); NEUTROPHILS % 61.6 % (36.0-66.0); PLATELET COUNT, AUTOMATED 144 10^3/uL (150-450)
[2025-06-08 08:19] LABS: ERYTHROCYTE SEDIMENTATION RATE 46 mm/hr (0-30)
[2025-06-08 08:35] LABS: C REACTIVE PROTEIN QUANTITATIV 4.09 MG/DL (<1.0); CALCIUM LEVEL 7.7 MG/DL (8.3-10.6); CARBON DIOXIDE LEVEL 27.0 MMOL/L (20-31); CHLORIDE LEVEL 106.0 MMOL/L (98-107); CREATININE FOR GFR 3.25 MG/DL (0.55-1.30); GLOMERULAR FILTRATION RATE 14.9 (>45); MAGNESIUM LEVEL 1.7 MG/DL (1.8-2.4); POTASSIUM SERUM 3.6 MMOL/L (3.5-5.1); SODIUM LEVEL 143.0 MMOL/L (136-145)
[2025-06-08] MEDS: CALCIUM GLUCONATE 1,000 MG in DEXTROSE 5% (D5W) MINI-BAG PLU 100 ML IV ONE (09:13)
[2025-06-08] MEDS: POTASSIUM CHLORIDE 10MEQ SR TABLET PO ONE (10:59)
[2025-06-08] MEDS: MAG SULF 1GM/100ML (MAG RUN) 1 GM in IV 1 EA IV ONE (11:00)
[2025-06-08 12:01] VITALS: BP 131/71; TEMP 97; O2SAT 97
[2025-06-08 14:37] LABS: KETONE, URINE AUTO RFX NEGATIVE (NEGATIVE); LEUKOCYTE ESTERASE UR AUTO RFX NEGATIVE (NEGATIVE); MUCUS, URINE RFX SMALL (NEGATIVE); NITRITE, URINE AUTO RFX NEGATIVE (NEGATIVE); RBC, URINE AUTO RFX 81 /HPF (0-3); SQUAM EPITHELIAL CELL UR AURFX 0 /HPF (0-6); WBC, URINE AUTO RFX 2 /HPF (0-3)
[2025-06-08 20:07] VITALS: BP 114/55; TEMP 97.7; O2SAT 98
[2025-06-09 04:37] VITALS: BP 132/74; TEMP 97.5; O2SAT 97
[2025-06-09 06:40] LABS: BASO # 0.0 10^3/uL (0.0-0.2); BASO % 0.7 % (0.0-1.0); EOS # 0.4 10^3/uL (0.0-0.5); EOS % 5.9 % (0.0-3.0); LYMPH # 1.1 10^3/uL (1.5-5.0); LYMPH % 18.3 % (24.0-44.0); MONO # 0.7 10^3/uL (0.0-0.8); MONO % 11.9 % (2.0-8.0); NEUTROPHILS # 3.7 10^3/uL (1.5-8.5); NEUTROPHILS % 60.4 % (36.0-66.0); PLATELET COUNT, AUTOMATED 201 10^3/uL (150-450)
[2025-06-09 07:04] LABS: CALCIUM LEVEL 8.1 MG/DL (8.3-10.6); CARBON DIOXIDE LEVEL 26.0 MMOL/L (20-31); CHLORIDE LEVEL 106.0 MMOL/L (98-107); CREATININE FOR GFR 3.29 MG/DL (0.55-1.30); GLOMERULAR FILTRATION RATE 14.7 (>45); POTASSIUM SERUM 3.7 MMOL/L (3.5-5.1); SODIUM LEVEL 144.0 MMOL/L (136-145)
[2025-06-09 15:57] VITALS: TEMP 100.6
[2025-06-09] MEDS: SENNOSIDES/DOCUSATE SODIUM 8.6 MG/50MG TAB PO PRN (16:58)
[2025-06-09 20:08] VITALS: BP 117/67; TEMP 97; O2SAT 96
[2025-06-10 03:57] VITALS: BP 110/59; TEMP 97.5; O2SAT 96
[2025-06-10 06:46] LABS: CALCIUM LEVEL 8.2 MG/DL (8.3-10.6); CARBON DIOXIDE LEVEL 26.0 MMOL/L (20-31); CHLORIDE LEVEL 107.0 MMOL/L (98-107); CREATININE FOR GFR 3.07 MG/DL (0.55-1.30); GLOMERULAR FILTRATION RATE 15.9 (>45); POTASSIUM SERUM 3.4 MMOL/L (3.5-5.1); SODIUM LEVEL 144.0 MMOL/L (136-145)
[2025-06-10] MEDS: POTASSIUM CHLORIDE 10MEQ SR TABLET PO ONE (13:19)
[2025-06-10 21:03] VITALS: BP 101/60; TEMP 97.7; O2SAT 99
[2025-06-10 21:46] LABS: BASO # 0.0 10^3/uL (0.0-0.2); BASO % 0.4 % (0.0-1.0); EOS # 0.2 10^3/uL (0.0-0.5); EOS % 3.3 % (0.0-3.0); LYMPH # 0.9 10^3/uL (1.5-5.0); LYMPH % 19.1 % (24.0-44.0); MONO # 0.8 10^3/uL (0.0-0.8); MONO % 17.1 % (2.0-8.0); NEUTROPHILS # 2.6 10^3/uL (1.5-8.5); NEUTROPHILS % 58.3 % (36.0-66.0); PLATELET COUNT, AUTOMATED 201 10^3/uL (150-450)
[2025-06-11 03:40] VITALS: BP 115/64; TEMP 97.3; O2SAT 97
[2025-06-11 07:35] LABS: CALCIUM LEVEL 8.2 MG/DL (8.3-10.6); CARBON DIOXIDE LEVEL 25.0 MMOL/L (20-31); CHLORIDE LEVEL 108.0 MMOL/L (98-107); CREATININE FOR GFR 2.87 MG/DL (0.55-1.30); GLOMERULAR FILTRATION RATE 17.2 (>45); POTASSIUM SERUM 3.5 MMOL/L (3.5-5.1); SODIUM LEVEL 141.0 MMOL/L (136-145)
[2025-06-11] MEDS: POTASSIUM CHLORIDE 10MEQ SR TABLET PO ONE ×2 (08:37→15:18)
[2025-06-11] MEDS: FUROSEMIDE 100 MG/10 ML VIAL IV ONE ×2 (11:04→17:13)
[2025-06-11 12:00] VITALS: BP 135/80; TEMP 97.9; O2SAT 97
[2025-06-11 15:13] LABS: C REACTIVE PROTEIN QUANTITATIV 3.08 MG/DL (<1.0)
[2025-06-11 15:18] LABS: ERYTHROCYTE SEDIMENTATION RATE 45 mm/hr (0-30)
[2025-06-11 15:20] LABS: BASO # 0.0 10^3/uL (0.0-0.2); BASO % 0.5 % (0.0-1.0); EOS # 0.2 10^3/uL (0.0-0.5); EOS % 5.3 % (0.0-3.0); LYMPH # 1.0 10^3/uL (1.5-5.0); LYMPH % 25.7 % (24.0-44.0); MONO # 0.7 10^3/uL (0.0-0.8); MONO % 18.4 % (2.0-8.0); NEUTROPHILS # 1.9 10^3/uL (1.5-8.5); NEUTROPHILS % 46.8 % (36.0-66.0); PLATELET COUNT, AUTOMATED 211 10^3/uL (150-450)
[2025-06-11 21:15] VITALS: BP 126/75; TEMP 97.5; O2SAT 98
[2025-06-11] MEDS: TRIAMCINOLONE ACET 0.1% OINTMENT 80GM TOP SCH (21:43)
[2025-06-12 05:24] VITALS: BP 107/52; TEMP 98.1; O2SAT 97
[2025-06-12 06:24] LABS: BASO # 0.0 10^3/uL (0.0-0.2); BASO % 0.7 % (0.0-1.0); EOS # 0.3 10^3/uL (0.0-0.5); EOS % 5.6 % (0.0-3.0); LYMPH # 1.0 10^3/uL (1.5-5.0); LYMPH % 22.2 % (24.0-44.0); MONO # 0.8 10^3/uL (0.0-0.8); MONO % 18.2 % (2.0-8.0); NEUTROPHILS # 2.3 10^3/uL (1.5-8.5); NEUTROPHILS % 51.1 % (36.0-66.0); PLATELET COUNT, AUTOMATED 174 10^3/uL (150-450)
[2025-06-12 06:52] LABS: CALCIUM LEVEL 8.3 MG/DL (8.3-10.6); CARBON DIOXIDE LEVEL 28.0 MMOL/L (20-31); CHLORIDE LEVEL 103.0 MMOL/L (98-107); CREATININE FOR GFR 2.78 MG/DL (0.55-1.30); GLOMERULAR FILTRATION RATE 17.9 (>45); POTASSIUM SERUM 3.7 MMOL/L (3.5-5.1); SODIUM LEVEL 144.0 MMOL/L (136-145)
[2025-06-12 08:00] VITALS: BP 136/75; TEMP 97.3; O2SAT 97
[2025-06-12] MEDS: FUROSEMIDE 100 MG/10 ML VIAL IV ONE (11:06)
[2025-06-12] MEDS: POTASSIUM CHLORIDE 10MEQ SR TABLET PO ONE (11:07)
[2025-06-12 12:00] VITALS: BP 116/52; TEMP 97.7; O2SAT 97
[2025-06-12 13:20] VITALS: BP 140/79; TEMP 96.8; O2SAT 100
[2025-06-12] MEDS: FERRIC CARBOXYMALTOSE INJ 750 MG, VIAL MATE ADAPTER 1 EACH in NS 100 ML IV ONE (13:20)
[2025-06-12 13:42] VITALS: BP 111/64; TEMP 96.8; O2SAT 100
[2025-06-12 16:03] LABS: IRON (FE) 33.0 UG/DL (50-170); PERCENT SATURATION 12.1 % (13.2-45.0)
[2025-06-12 19:43] VITALS: BP 124/68; TEMP 97.7; O2SAT 97
[2025-06-13 03:54] VITALS: BP 113/61; TEMP 97.5; O2SAT 96
[2025-06-13 07:23] LABS: BASO # 0.0 10^3/uL (0.0-0.2); BASO % 0.4 % (0.0-1.0); EOS # 0.2 10^3/uL (0.0-0.5); EOS % 4.1 % (0.0-3.0); LYMPH # 1.0 10^3/uL (1.5-5.0); LYMPH % 20.4 % (24.0-44.0); MONO # 0.7 10^3/uL (0.0-0.8); MONO % 13.4 % (2.0-8.0); NEUTROPHILS # 2.9 10^3/uL (1.5-8.5); NEUTROPHILS % 59.4 % (36.0-66.0); PLATELET COUNT, AUTOMATED 213 10^3/uL (150-450)
[2025-06-13 07:47] LABS: CALCIUM LEVEL 8.3 MG/DL (8.3-10.6); CARBON DIOXIDE LEVEL 28.0 MMOL/L (20-31); CHLORIDE LEVEL 102.0 MMOL/L (98-107); CREATININE FOR GFR 2.61 MG/DL (0.55-1.30); GLOMERULAR FILTRATION RATE 19.3 (>45); POTASSIUM SERUM 3.7 MMOL/L (3.5-5.1); SODIUM LEVEL 144.0 MMOL/L (136-145)
[2025-06-13] MEDS: POTASSIUM CHLORIDE 10MEQ SR TABLET PO SCH (08:21)
[2025-06-13 08:23] VITALS: BP 113/59
[2025-06-13] MEDS: FUROSEMIDE 40 MG TAB PO SCH (08:23)
[2025-06-13 12:00] VITALS: BP 131/70; TEMP 97.5; O2SAT 97
[2025-06-13 13:21] LABS: ESTIMATED AVERAGE GLUCOSE 189.0 MG/DL (60-110)
[2025-06-13] MEDS ORDERED: PEN-308 SC (13:31)
[2025-06-13] MEDS ORDERED: FURO40TA2 PO (13:31)
[2025-06-13] MEDS ORDERED: POTA10CA70 PO (13:31)
[2025-06-13] MEDS ORDERED: LANC30MI XX (13:31)
[2025-06-13] MEDS ORDERED: LANTINJ4 SC (13:31)
[2025-06-13] MEDS ORDERED: GLUC1TES2 XX (13:31)
[2025-06-13] MEDS ORDERED: BLOOKIT21 XX (13:31)
[2025-06-17] MEDS ORDERED: DARBEPOETIN 100 MCG/0.5 ML *NON-DIALYSIS* SYRINGE SC SCH (13:00)
== END 2025-06-13 14:29 | disposition home or self-care (01) | DRG 871 ==
LOC: M ED 09:56 → M PCU 13:30 → M ICU 17:32 → M ED INP 06-06 11:25 → M ICU 06-06 11:26 → M MSPAV 06-07 15:12
PROVIDERS: ADMIT General Practice; ATTEND Internal Medicine
PROC: 02H633Z Insertion of Infusion Device into Right Atrium, Percutaneous Approach (ICD-10-PCS; principal; 2025-06-02)
PROC: 04HY32Z Insertion of Monitoring Device into Lower Artery, Percutaneous Approach (ICD-10-PCS; 2025-06-02)
PROC: B246ZZZ Ultrasonography of Right and Left Heart (ICD-10-PCS; 2025-06-02)
PROC: 02HV33Z Insertion of Infusion Device into Superior Vena Cava, Percutaneous Approach (ICD-10-PCS; 2025-06-03)
PROC: 5A1D70Z Performance of Urinary Filtration, Intermittent, Less than 6 Hours Per Day (ICD-10-PCS; 2025-06-03)
DX: R57.1 Hypovolemic shock (principal); N17.0 Acute kidney failure with tubular necrosis; E87.21 Acute metabolic acidosis; E87.0 Hyperosmolality and hypernatremia; I10 Essential (primary) hypertension; E78.00 Pure hypercholesterolemia, unspecified; E11.9 Type 2 diabetes mellitus without complications; E03.9 Hypothyroidism, unspecified; D50.9 Iron deficiency anemia, unspecified; M19.90 Unspecified osteoarthritis, unspecified site; R68.0 Hypothermia, not associated with low environmental temperature; E87.5 Hyperkalemia; E87.6 Hypokalemia; E87.8 Other disorders of electrolyte and fluid balance, not elsewhere classified; K64.8 Other hemorrhoids; E86.1 Hypovolemia; E83.51 Hypocalcemia; K52.9 Noninfective gastroenteritis and colitis, unspecified; M54.50 Low back pain, unspecified; Z79.84 Long term (current) use of oral hypoglycemic drugs; Z79.899 Other long term (current) drug therapy; Z87.891 Personal history of nicotine dependence; Z86.0101 Personal history of adenomatous and serrated colon polyps

== ENCOUNTER → 2025-06-16 | Outpatient (CLI) | payer MEDICARE ==
[~2025-06-16] MED LIST changes: +BLOOKIT21 XX; +FURO40TA2 PO; +GLUC1TES2 XX; +LANC30MI XX; +LANTINJ4 SC; +METF850T4 PO; +MULTTAB61 PO; +OMEP40CA5 PO; +PEN-308 SC; +POTA10CA70 PO; -ROSUVASTATIN 10 MG TAB PO SCH
[2025-06-16 12:35] LABS: BASO # 0.1 10^3/uL (0.0-0.2); BASO % 1.0 % (0.0-1.0); EOS # 0.2 10^3/uL (0.0-0.5); EOS % 2.7 % (0.0-3.0); LYMPH # 0.9 10^3/uL (1.5-5.0); LYMPH % 12.8 % (24.0-44.0); MONO # 0.6 10^3/uL (0.0-0.8); MONO % 8.7 % (2.0-8.0); NEUTROPHILS # 5.4 10^3/uL (1.5-8.5); NEUTROPHILS % 73.4 % (36.0-66.0); PLATELET COUNT, AUTOMATED 258 10^3/uL (150-450)
[2025-06-16 12:37] LABS: ALT/SGPT 22.0 U/L (7.0-40); AST/SGOT 27.0 U/L (<34); CALCIUM LEVEL 8.5 MG/DL (8.3-10.6); CARBON DIOXIDE LEVEL 28.0 MMOL/L (20-31); CHLORIDE LEVEL 102.0 MMOL/L (98-107); CREATININE FOR GFR 2.1 MG/DL (0.55-1.30); GLOMERULAR FILTRATION RATE 25.0 (>45); POTASSIUM SERUM 3.8 MMOL/L (3.5-5.1); SODIUM LEVEL 144.0 MMOL/L (136-145)
== END ==
LOC: M WUC 09:38
PROVIDERS: ATTEND Internal Medicine
DX: N17.9 Acute kidney failure, unspecified (principal)

== ENCOUNTER → 2025-09-06 | Outpatient (CLI) | payer MEDICARE ==
[2025-09-06 12:26] LABS: BASO # 0.1 10^3/uL (0.0-0.2); BASO % 1.2 % (0.0-1.0); EOS # 0.2 10^3/uL (0.0-0.5); EOS % 4.2 % (0.0-3.0); LYMPH # 1.4 10^3/uL (1.5-5.0); LYMPH % 25.2 % (24.0-44.0); MONO # 0.5 10^3/uL (0.0-0.8); MONO % 9.3 % (2.0-8.0); NEUTROPHILS # 3.4 10^3/uL (1.5-8.5); NEUTROPHILS % 59.9 % (36.0-66.0); PLATELET COUNT, AUTOMATED 309 10^3/uL (150-450)
[2025-09-06 12:43] LABS: ESTIMATED AVERAGE GLUCOSE 137.0 MG/DL (60-110)
[2025-09-06 12:51] LABS: ALT/SGPT 17 U/L (7.0-40); AST/SGOT 18 U/L (<34); CALCIUM LEVEL 9.7 MG/DL (8.3-10.6); CARBON DIOXIDE LEVEL 31 MMOL/L (20-31); CHLORIDE LEVEL 100 MMOL/L (98-107); CHOLESTEROL LEVEL 185 MG/DL (<200); CHOLESTEROL RISK RATIO 3.04 (<5); CREATININE FOR GFR 0.65 MG/DL (0.55-1.30); GLOMERULAR FILTRATION RATE > 90.0 (>45); LDL CHOLESTEROL 97.2 MG/DL (<100); NON-HDL-C 124.2 MG/DL; POTASSIUM SERUM 4.2 MMOL/L (3.5-5.1); SODIUM LEVEL 140 MMOL/L (136-145); TRIGLYCERIDES LEVEL 135 MG/DL (<150)
== END ==
LOC: M WUC 10:17
PROVIDERS: ATTEND Internal Medicine
DX: D50.9 Iron deficiency anemia, unspecified (principal); E78.5 Hyperlipidemia, unspecified; E11.9 Type 2 diabetes mellitus without complications